=== PATIENT | male | born 1995 | race Caucasian/White ===

== ENCOUNTER 2016-06-20 21:24 | Emergency (ER) | payer BC ==
[2016-06-20 21:31] VITALS: RESP 16; TEMP 98.6; O2SAT 95
[2016-06-20] MEDS ORDERED: NS 1,000 ML IV ONE (22:19)
--- NOTE | 2016-06-20 22:21 | EDPHY ---
General - History Smoking Status: Never smoked Narrative: CHIEF COMPLAINT: Fever HISTORY OF PRESENT ILLNESS: Patient complains of fever over the past 2 days. T -max of a 104 today. It has been persistently above 101. Improves with ibuprofen. Last took ibuprofen about an hour ago. Associated with some headache, neck pain, mildly sore throat, body aches, malaise and joint pain in the knees. Symptoms are currently mild at this time. He has no neck stiffness or rigidity. Headache significantly improved or resolved when his fever goes down or goes away. Minimal cough. No nausea or vomiting. No abdominal pain. No urinary complaints. [facility] with reportedly negative flu swab. No other associated complaints or modifying factors. REVIEW OF SYSTEMS: Ten systems reviewed and are negative unless otherwise noted in the HPI PERTINENT MEDICAL HISTORY: None. Family history of malignant hyperthermia with anesthesia. No instance of this for him. EXAMINATION General Appearance: Alert, no distress. Resting comfortably Head: normocephalic, atraumatic Eyes: Pupils equal and round, no conjunctival pallor or injection. EOMs intact ENT, Mouth: Mucous membranes moist. Uvula midline. Minimal erythema. No abscess. Airway is widely patent. Neck: Normal inspection, supple, non-tender. No nuchal rigidity. Painless range of motion all planes. Full active and passive range of motion without pain. Negative Brudzinski. Negative Kernig. Respiratory: Lungs are clear to auscultation. No wheezing, rhonchi or crackles. Cardiovascular: Regular rate and rhythm. No murmur. Pulses intact distally symmetrically. Gastrointestinal: Abdomen is soft and nontender. No hepatosplenomegaly. Neurological: A&O, nonfocal, normal gait. Strength is symmetric in all limbs. Skin: Warm and dry, no rash. No petechiae purpura Extremities: Nontender, no pedal edema Psychiatric: Mood and affect normal DIFFERENTIAL DIAGNOSES: Including but not limited to influenza, mononucleosis, viral illness, pneumonia , meningitis MDM: 10:20 p.m. Reports of fever with a T-max of a 104 earlier today. This is associated with flu-like symptoms including headache, body aches, joint pain, malaise. Symptoms are significantly improved with ibuprofen. At time of examination in the emergency department his vital signs are all within normal limits. He is not tachycardic or tachypneic. He does not appear ill. He is ranging his neck spontaneously and without any pain. Examination does not suggest any meningitis or overwhelming illness. I will check a flu test, mono test and provide IV fluid for him. He is resting comfortably in no acute distress. 12:00 a.m. Laboratory studies are all within normal limits. Patient is resting comfortably. He has received 1 L IV fluid resuscitation. He is feeling better at this time. He has no headache. He has no neck pain or stiffness. He is in no acute distress. I feel that he likely has a viral syndrome of uncertain etiology. He is comfortable being discharged home with instructions increase his fluid intake, to rest and follow up on campus with [employer]. He is to return to ER for any headache, neck pain or stiffness or worsening symptoms. He is comfortable this plan and discharged home in stable condition. SUPERVISION: This patient was independently evaluated without direct examination by the attending physician. Case was discussed with attending physician. (Michael Reyez ) Medical Decision Making: PHYSICIAN DOCUMENTATION: The patient was evaluated and managed by the Physician Follow Up Rep. My co- signature indicates that I have reviewed this chart and I agree with the findings and plan of care as documented. I am the secondary supervising physician. (Anne Baron) - Objective Vital Signs: Initial Vital Signs Temperature (C) 37 C 06/20/16 21:28 Heart Rate 94 06/20/16 21:28 Respiratory Rate 16 06/20/16 21:28 Blood Pressure 102/72 06/20/16 21:28 O2 Sat (%) 95 06/20/16 21:28 O2 Delivery Mode Room Air Allergies/Adverse Reactions: Sulfa (Sulfonamide Antibiotics) Allergy (Verified 06/20/16 21:31) Home Medications: Medication Instructions Recorded NK [No Known Home Meds] 06/20/16 Laboratory Results: Laboratory Results 06/20/16 22:33 06/20/16 22:33 06/20/16 06/20/16 06/20/16 22:45 22:33 22:33 WBC RBC Hgb Hct MCV MCH MCHC RDW Plt Count MPV Neut % (Auto) Lymph % (Auto) [place] % (Auto) Eos % (Auto) Baso % (Auto) Nucleat RBC Rel Count Absolute Neuts (auto) Absolute Lymphs (auto) Absolute Monos (auto) Absolute Eos (auto) Absolute Basos (auto) Absolute Nucleated RBC Immature Gran % Immature Gran # Sodium 136 mEq/L mEq/L (134-144) Potassium 3.8 mEq/L mEq/L (3.5-5.2) Chloride 99 mEq/L mEq/L (97-110) Carbon Dioxide 25 mEq/l mEq/l (22-31) Anion Gap 12 mEq/L mEq/L (8-16) BUN 14 mg/dL mg/dL (7-23) Creatinine 1.0 mg/dL mg/dL (0.7-1.3) Estimated GFR > 60 Glucose 95 mg/dL mg/dL (70-100) Calcium 9.6 mg/dL mg/dL (8.5-10.4) Monoscreen NEGATIVE (NEGATIVE) Influenza Typ A,B (DFA) NEGATIVE FOR FLU (NEGATIVE) 06/20/16 22:33 WBC 8.92 10^3/uL 10^3/uL (3.80-9.50) RBC 5.86 10^6/uL 10^6/uL (4.40-6.38) Hgb 16.1 g/dL g/dL (13.7-17.5) Hct 48.3 % % (40.0-51.0) MCV 82.4 fL fL (81.5-99.8) MCH 27.5 pg L pg (27.9-34.1) MCHC 33.3 g/dL g/dL (32.4-36.7) RDW 13.4 % % (11.5-15.2) Plt Count 151 10^3/uL 10^3/uL (150-400) MPV 10.8 fL fL (8.7-11.7) Neut % (Auto) 80.6 % H % (39.3-74.2) Lymph % (Auto) 7.2 % L % (15.0-45.0) [place] % (Auto) 11.3 % % (4.5-13.0) Eos % (Auto) 0.1 % L % (0.6-7.6) Baso % (Auto) 0.4 % % (0.3-1.7) Nucleat RBC Rel Count 0.0 % % (0.0-0.2) Absolute Neuts (auto) 7.18 10^3/uL H 10^3/uL (1.70-6.50) Absolute Lymphs (auto) 0.64 10^3/uL L 10^3/uL (1.00-3.00) Absolute Monos (auto) 1.01 10^3/uL H 10^3/uL (0.30-0.80) Absolute Eos (auto) 0.01 10^3/uL L 10^3/uL (0.03-0.40) Absolute Basos (auto) 0.04 10^3/uL 10^3/uL (0.02-0.10) Absolute Nucleated RBC 0.00 10^3/uL 10^3/uL (0-0.01) Immature Gran % 0.4 % % (0.0-1.1) Immature Gran # 0.04 10^3/uL 10^3/uL (0.00-0.10) Sodium Potassium Chloride Carbon Dioxide Anion Gap BUN Creatinine Estimated GFR Glucose Calcium Monoscreen Influenza Typ A,B (DFA) Medications Given: Discontinued Medications Sodium Chloride (Ns) 1,000 mls @ 0 mls/hr IV ONCE ONE PRN Reason: Wide Open Stop: 06/20/16 22:20 Last Admin: 06/20/16 22:33 Dose: 1,000 mls Departure - Departure Disposition: Home, Routine, Self-Care Clinical Impression: Flu-like symptoms Fever Qualifiers: Fever type: unspecified Qualified Code(s): R50.9 - Fever, unspecified Condition: Good Instructions: Viral Syndrome (ED) Additional Instructions: Rest and fluid intake. Tylenol and ibuprofen as needed as directed on the bottle. Follow up with primary care physician or [facility]. Return to ER for worsening symptoms, headache, neck pain or stiffness Referrals: MARTA,UNKNOWN [Other] - As per Instructions [facility] [Clinic] - As per Instructions Stand Alone Forms: School Excuse
[2016-06-20 22:48] LABS: % IMMATURE GRANULYOCYTES 0.4 % (0.0-1.1); ABSOLUTE IMMATURE GRANULOCYTES 0.04 10^3/uL (0.00-0.10); ADD DIFF? NO; ADD MORPH? NO; ADD SCAN? NO; ATYPICAL LYMPHOCYTE FLAG 10 (0-99); FRAGMENT RBC FLAG 0 (0-99); HEMATOCRIT 48.3 % (40.0-51.0); HEMOGLOBIN 16.1 g/dL (13.7-17.5); LEFT SHIFT FLG 0 (0-99); LIPEMIA HEMOLYSIS FLAG 80 (0-99); MEAN CELL HEMOGLOBIN 27.5 pg (27.9-34.1); MEAN CELL HEMOGLOBIN CONCENTR. 33.3 g/dL (32.4-36.7); MEAN CELL VOLUME 82.4 fL (81.5-99.8); MEAN PLATELET VOLUME 10.8 fL (8.7-11.7); PLATELET CLUMPS FLAG 0 (0-99); PLATELET COUNT 151 10^3/uL (150-400); RED BLOOD CELL COUNT 5.86 10^6/uL (4.40-6.38); RED CELL DISTRIBUTION WIDTH 13.4 % (11.5-15.2)
[2016-06-20 23:03] LABS: ANION GAP 12 mEq/L (8-16); CALCIUM 9.6 mg/dL (8.5-10.4); CARBON DIOXIDE 25 mEq/l (22-31); CHLORIDE 99 mEq/L (97-110); GLOMERULAR FILTRATION RATE > 60; GLUCOSE 95 mg/dL (70-100); POTASSIUM 3.8 mEq/L (3.5-5.2); SODIUM 136 mEq/L (134-144)
[2016-06-21 00:06] VITALS: BP 130/71; PULSE 75
== END 2016-06-21 00:11 | disposition home or self-care (01) ==
DX: J11.1 Influenza due to unidentified influenza virus with other respiratory manifestations (principal)